=== PATIENT | female | born 1985 | race Caucasian/White ===

== ENCOUNTER 2019-10-27 13:12 | Outpatient (CLI) | payer MEDICAID ==
--- NOTE | 2019-10-27 13:56 | ULT ---
TRANSABDOMINAL AND TRANSVAGINAL PELVIC ULTRAOSUND WITH YEE SCALE, COLORFLOW AND SPECTRAL DOPPLER RODRIGO GIN10/27/19 HISTORY: Heavy periods last month. FINDINGS: The uterus measures 8.6 x 4.7 x 5.23 cm without focal mass or endometrial fluid. The endometrium sabrina ures 6 mm in thickness. The right ovary measures 1.6 x 3.6 x 2.1 cm and demonstrates flow. The left ovary is not visualized. There are cysts in the right ovary measuring up to 1.3 cm. No free fluid is seen in the cul-de-sac. IMPRESSION: Small right ovarian cysts. POS: [facility]
== END 2019-10-27 13:13 | disposition home or self-care (01) ==
LOC: SCSULT 13:12
PROVIDERS: ATTEND Family Medicine
DX: N92.0 Excessive and frequent menstruation with regular cycle (principal); N83.201 Unspecified ovarian cyst, right side
CPT/HCPCS: 76856